=== PATIENT | female | born 2000 | race African-American/Black ===

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

== ENCOUNTER 2023-05-02 00:50 | Emergency (ER) | payer OTHER ==
[2023-05-02 00:59] VITALS: BP 139/76; PULSE 115; RESP 17; TEMP 99.6; BMI 37.8
[2023-05-02] MEDS ORDERED: ONDANSETRON 4 MG/2 ML VIAL IVPUSH ONE (01:58)
[2023-05-02] MEDS ORDERED: MAG HYDROX/AL HYDROX/SIMETH 30 ML UNIT-DOSE CUP PO ONE (01:58)
[2023-05-02] MEDS ORDERED: FAMOTIDINE 20 MG/50 ML IVPB 20 MG/50 ML MG IVPB ONE ×2 (01:58→02:13)
[2023-05-02] MEDS ORDERED: LACTATED RINGERS SOLUTION 1000 ML INFUS.BAG IV ONE (01:58)
[2023-05-02] MEDS ORDERED: ACETAMINOPHEN 1000 MG/100 ML BAG IVPB ONE (01:58)
[2023-05-02] MEDS ORDERED: MAG HYDROX/AL HYDROX/SIMETH 30 ML UNIT-DOSE CUP ONE (02:03)
[2023-05-02] MEDS ORDERED: ACETAMINOPHEN INJECTION 100 ML IVPB ONE (02:13)
[2023-05-02] MEDS ORDERED: ONDANSETRON 4 MG/2 ML VIAL ONE (02:13)
[2023-05-02 02:23] LABS: EPI CELLS >36 /uL (0-25.1); HYALINE CASTS 2 /uL (0-3.1); URINE APPEARANCE CLOUDY; URINE BACTERIA 3446 /uL (0-1359); URINE BILIRUBIN NEGATIVE (NEGATIVE); URINE COLOR YELLOW; URINE GLUCOSE (UA) NEGATIVE (NEGATIVE); URINE KETONE NEGATIVE (NEGATIVE); URINE LEUK ESTERASE NEGATIVE (NEGATIVE); URINE NITRITE NEGATIVE (NEGATIVE); URINE PROTEIN TRACE (NEGATIVE); URINE UROBILINOGEN 0.2 mg/dL (0.2-1.0); URINE WBC 40 /uL (0-25.8)
[2023-05-02 02:44] LABS: HCG,QUALITATIVE URINE NEGATIVE
[2023-05-02 03:29] LABS: BASO % 0.1 % (0-2.0); HEMATOCRIT 40.4 % (32.4-45.2); HEMOGLOBIN 14.1 GM/dL (10.7-15.3); LYMPH % 10.3 % (8-40); MCH 30.6 pg (25.7-33.7); MCHC 34.8 g/dl (32.0-36.0); MEAN CELL VOLUME 87.9 fl (80-96); MEAN PLT VOLUME 6.6 fl (7.5-11.1); MONO % 7.2 % (3.8-10.2); NEUT % 82.4 % (42.8-82.8); PLATELET COUNT 347 10^3/uL (134-434); RBC 4.59 M/mm3 (3.60-5.2); RDW 12.9 % (11.6-15.6); WHITE BLOOD COUNT 6.5 K/mm3 (4.0-10.0)
[2023-05-02 03:31] LABS: POTASSIUM 3.5 mmol/L (3.5-5.1)
[2023-05-02 03:33] LABS: CALCIUM 8.5 mg/dL (8.5-10.1)
[2023-05-02 03:34] LABS: ALBUMIN 3.8 g/dl (3.4-5.0); BLOOD UREA NITROGEN 11.6 mg/dL (7-18)
[2023-05-02 03:37] LABS: CREATININE 0.8 mg/dL (0.55-1.3)
[2023-05-02 03:38] LABS: BILIRUBIN,TOTAL 0.8 mg/dL (0.2-1)
[2023-05-02 03:39] LABS: TOT PROT 7.3 g/dl (6.4-8.2)
[2023-05-02 12:02] LABS: URINE RBC 115.1 /uL (0-23.9)
== END 2023-05-02 03:58 | disposition home or self-care (01) ==
LOC: JER 00:50
PROC: 3E033GC Introduction of Other Therapeutic Substance into Peripheral Vein, Percutaneous Approach (ICD-10-PCS; principal; 2023-05-02)
PROC: 3E033NZ Introduction of Analgesics, Hypnotics, Sedatives into Peripheral Vein, Percutaneous Approach (ICD-10-PCS; 2023-05-02)
DX: R11.2 Nausea with vomiting, unspecified (principal); R19.7 Diarrhea, unspecified; R00.0 Tachycardia, unspecified; R68.83 Chills (without fever); K52.9 Noninfective gastroenteritis and colitis, unspecified
CPT/HCPCS: 36415; 80053; 81003; 84703; 85025; 93005; 93010; 99284-25

== ENCOUNTER 2023-09-26 15:39 | Emergency (ER) | payer OTHER ==
[2023-09-26 16:36] VITALS: BP 118/75; RESP 16; BMI 44.6
[2023-09-26] MEDS ORDERED: KETOROLAC TROMETHAMINE 30 MG/1 ML VIAL IM ONE (16:52)
[2023-09-26] MEDS ORDERED: DEXAMETHASONE SOD PHOSPHATE 10 MG/1 ML VIAL IM ONE (16:53)
[2023-09-26] MEDS ORDERED: DEXAMETHASONE SOD PHOSPHATE 10 MG/1 ML VIAL ONE (17:09)
[2023-09-26] MEDS ORDERED: KETOROLAC TROMETHAMINE 30 MG/1 ML VIAL ONE (17:09)
[2023-09-26 17:44] VITALS: PULSE 88; TEMP 99
== END 2023-09-26 18:06 | disposition home or self-care (01) ==
LOC: FER 15:39
PROC: 3E0233Z Introduction of Anti-inflammatory into Muscle, Percutaneous Approach (ICD-10-PCS; principal; 2023-09-26)
PROC: 3E023GC Introduction of Other Therapeutic Substance into Muscle, Percutaneous Approach (ICD-10-PCS; 2023-09-26)
DX: R05.9 Cough, unspecified (principal); R50.9 Fever, unspecified; J02.9 Acute pharyngitis, unspecified; R09.81 Nasal congestion; J04.0 Acute laryngitis; J06.9 Acute upper respiratory infection, unspecified; M79.10 Myalgia, unspecified site; R07.0 Pain in throat; R13.10 Dysphagia, unspecified; R11.10 Vomiting, unspecified; Z20.822 Contact with and (suspected) exposure to COVID-19
CPT/HCPCS: 0241U-QW; 87651; 99284-25; J1100